=== PATIENT | male | born 1935 | race African-American/Black ===

== ENCOUNTER 2016-08-18 13:27 | Emergency (ER) | payer MEDICARE, MEDICAID ==
[~2016-08-18] VITALS: Ht 188 cm; Wt 90.0 kg
[~2016-08-18 13:27] MED LIST: AMIO100T4 PO; COR25 PO; DONE10TA43 PO; FURO80TA3 PO; LISI10TA5 PO; MEGE400O PO; OXYB5TAB11 PO; POTA20TA75 PO; TAMS-11 PO; WARF3TAB28 PO; eliquis PO
[2016-08-18] MEDS ORDERED: SODIUM CHLORIDE 0.9% 1,000 ML IV ONE (13:58)
[2016-08-18 14:25] LABS: CHLORIDE 107 mEq/L (98-107); INDEX HEMOLYSI 1 (1-3); INDEX ICTERIC 1 (1-4); INDEX LIPEMIC 1 (1-3); INR 1.2; PROTHROMBIN TIME 12.5 sec
[2016-08-18 14:28] LABS: BASOPHILS % 0.6 % (0.0-2.0); EOSINOPHILS % 0.4 % (0.0-5.0); HEMATOCRIT. 43.9 % (42.0-52.0); HEMOGLOBIN. 14.6 g/dL (14.0-18.0); LYMPHOCYTES % 20.4 % (20.0-50.0); MEAN CORPUSCULAR HEMOGLOBIN 31.7 pg (28.0-32.0); MEAN CORPUSCULAR HGB CONC 33.2 g/dL (31.0-37.0); MEAN CORPUSCULAR VOLUME 95.3 fL (80.0-94.0); MEAN PLATELET VOLUME 7.7 fl (7.4-10.4); MONOCYTES % 9.3 % (2.0-8.0); NEUTROPHILS % 69.3 % (40.0-76.0); PLATELET 237 x1000/uL (130-400); RED CELL DISTRIBUTION WIDTH 15.3 % (11.6-14.6); WHITE BLOOD COUNT 10.9 x1000/uL (4.5-11.0)
[2016-08-18 14:29] LABS: ALBUMIN 3.4 g/dL (3.4-5.0); ANION GAP 15; CALCIUM 9.4 mg/dL (8.5-10.1); CARBON DIOXIDE 26 mEq/L (21-32); LIPASE 466 IU/L (73-393); UREA NITROGEN BLOOD 47 mg/dL (7-21)
[2016-08-18 14:35] LABS: ALANINE AMINOTRANSFERASE 24 IU/L (13-61); NT PRO B-TYPE NATRIURETIC PEP 9796 pg/mL (5-125); eGFR 51 mL/min (>60)
[2016-08-18 16:18] LABS: CLARITY URINE CLEAR (CLEAR); COLOR URINE YELLOW (YELLOW); GLUCOSE URINE NEGATIVE (NEGATIVE); KETONES URINE NEGATIVE (NEGATIVE); LEUKOCYTE ESTERASE URINE NEGATIVE (NEGATIVE); NITRITE URINE NEGATIVE (NEGATIVE); OCCULT BLOOD URINE NEGATIVE (NEGATIVE); PH URINE 5.5 (4.5-8.0); PROTEIN URINE NEGATIVE (NEGATIVE); SPECIFIC GRAVITY URINE 1.021 (1.005-1.030)
[2016-08-18 16:31] VITALS: BP 113/57
== END 2016-08-18 17:04 | disposition home or self-care (01) ==
LOC: ER 13:49
DX: R53.1 Weakness (principal); F03.90 Unspecified dementia, unspecified severity, without behavioral disturbance, psychotic disturbance, mood disturbance, and anxiety; Z79.899 Other long term (current) drug therapy; Z79.01 Long term (current) use of anticoagulants; Z87.891 Personal history of nicotine dependence; I12.9 Hypertensive chronic kidney disease with stage 1 through stage 4 chronic kidney disease, or unspecified chronic kidney disease; N18.9 Chronic kidney disease, unspecified; R05 Cough; R51 Headache
CPT/HCPCS: 36415; 70450; 71010; 80053; 81003; 83605; 83690; 83880; 84484; 85025; 85610; 87040; 87086; 93005; 96360; 99285; J7030

== ENCOUNTER 2016-10-22 19:00 | Inpatient (IN) | payer MEDICARE, MEDICAID ==
[~2016-10-22] VITALS: Ht 180.3 cm; Wt 83.5 kg
[~2016-10-22 19:00] MED LIST changes: -DONE10TA43 PO; +IOHEXOL-350 100 ML BOTTLE ONE; -MEGE400O PO; -OXYB5TAB11 PO; -POTA20TA75 PO; +SODIUM CHLORIDE 0.9% 10ML VIAL ONE; -WARF3TAB28 PO
[2016-10-22] MEDS ORDERED: VANCOMYCIN 1 G PREMIX 200 ML IV SCH (19:45)
[2016-10-22 20:01] LABS: HEMATOCRIT. 29.6 % (42.0-52.0); MEAN CORPUSCULAR HEMOGLOBIN 31.5 pg (28.0-32.0); MEAN CORPUSCULAR VOLUME 93.2 fL (80.0-94.0); MEAN PLATELET VOLUME 8.3 fl (7.4-10.4); PLATELET 303 x1000/uL (130-400); RED BLOOD CELL COUNT 3.18 mill/uL (4.7-6.1); RED CELL DISTRIBUTION WIDTH 14.9 % (11.6-14.6)
[2016-10-22 20:07] LABS: CHLORIDE 99 mEq/L (98-107)
[2016-10-22 20:08] LABS: INR 1.2; PROTHROMBIN TIME 12.9 sec
[2016-10-22 20:15] LABS: CARBON DIOXIDE 33 mEq/L (21-32)
[2016-10-22 20:30] LABS: PLATELET ESTIMATE NORMAL
[2016-10-22] MEDS ORDERED: POTASSIUM CHLORIDE 20MEQ TABLET SR PO ONE (20:30)
[2016-10-22] MEDS ORDERED: ENOXAPARIN 80MG/0.8ML SYR SUBCUT ONE (21:30)
[2016-10-22] MEDS ORDERED: MORPHINE SULFATE 4 MG/ML CPJ (NOT FOR IM USE) IV ONE (22:30)
[2016-10-23 01:06] LABS: TROPONIN I 0.08 ng/mL (0.00-0.04)
[2016-10-23] MEDS ORDERED: HEPARIN 25,000 UNITS PREMIX 500 ML IV SCH (09:30)
[2016-10-23] MEDS ORDERED: CLONIDINE 0.1MG TABLET PO PRN ×2 (09:30→12:45)
[2016-10-23 10:25] LABS: HEMATOCRIT. 33.8 % (42.0-52.0); HEMOGLOBIN. 11.1 g/dL (14.0-18.0); MEAN CORPUSCULAR HEMOGLOBIN 30.8 pg (28.0-32.0); MEAN CORPUSCULAR VOLUME 93.9 fL (80.0-94.0); MEAN PLATELET VOLUME 8.4 fl (7.4-10.4); PLATELET 346 x1000/uL (130-400); RED CELL DISTRIBUTION WIDTH 15.2 % (11.6-14.6)
[2016-10-23 10:42] LABS: INR 1.2; PROTHROMBIN TIME 12.2 sec
[2016-10-23 10:44] LABS: CARBON DIOXIDE 36 mEq/L (21-32); CHLORIDE 98 mEq/L (98-107)
[2016-10-23 10:50] LABS: TROPONIN I 0.08 ng/mL (0.00-0.04)
[2016-10-23 10:51] LABS: PLATELET ESTIMATE NORMAL
[2016-10-23 10:54] LABS: CREATINE KINASE MB FRACTION 3.2 ng/mL (0.5-3.6)
[2016-10-23 11:50] VITALS: BP 129/81
[2016-10-23] MEDS ORDERED: HEPARIN BOLUS PRN aPTT <30 IV (12:00)
[2016-10-23] MEDS: LISINOPRIL 5MG TABLET PO SCH ×2 (12:15→20:52)
[2016-10-23 12:41] VITALS: BP 129/81
[2016-10-23] MEDS ORDERED: HYDROMORPHONE HCL/PF 2MG/ML CPJ IV PRN (12:45)
[2016-10-23] MEDS ORDERED: ONDANSETRON HCL 4MG/2ML VIAL IV PRN (12:45)
[2016-10-23] MEDS ORDERED: ENOXAPARIN 40MG/0.4ML SYR SUBCUT SCH (12:45)
[2016-10-23] MEDS ORDERED: ACETAMINOPHEN 325MG TABLET PO PRN (12:45)
[2016-10-23 12:46] VITALS: BP 129/81
[2016-10-23 12:50] LABS: CREATINE KINASE 140 IU/L (39-308)
[2016-10-23] MEDS: HEPARIN 25,000 UNITS PREMIX 500 ML IV SCH (15:02)
[2016-10-23 16:00] VITALS: BP 136/80
[2016-10-23] MEDS: DEXT 5%/0.45% NACL 1000ML 1,000 ML IV SCH (17:00)
[2016-10-23 20:00] VITALS: BP 107/59
[2016-10-23] MEDS: CARVEDILOL 12.5MG TABLET PO SCH (20:51)
[2016-10-23] MEDS ORDERED: POTASSIUM CHLORIDE 20MEQ TABLET SR PO NR (21:00)
[2016-10-23] MEDS: HEPARIN BOLUS PRN aPTT 30-44 IV (22:21)
[2016-10-24 02:00] VITALS: BP 112/55
[2016-10-24 04:00] VITALS: BP 117/70
[2016-10-24 06:22] LABS: CARBON DIOXIDE 36 mEq/L (21-32); CHLORIDE 98 mEq/L (98-107)
[2016-10-24 06:23] LABS: TROPONIN I 0.13 ng/mL (0.00-0.04)
[2016-10-24] MEDS: DEXT 5%/0.45% NACL 1000ML 1,000 ML IV SCH ×2 (06:39→16:24)
[2016-10-24] MEDS: HEPARIN BOLUS PRN aPTT 30-44 IV ×2 (06:56→21:05)
[2016-10-24 07:05] LABS: BASOPHILS % 0.2 % (0.0-2.0); EOSINOPHILS % 0.1 % (0.0-5.0); HEMATOCRIT. 32.1 % (42.0-52.0); HEMOGLOBIN. 10.4 g/dL (14.0-18.0); LYMPHOCYTES % 8.7 % (20.0-50.0); MEAN CORPUSCULAR HEMOGLOBIN 30.6 pg (28.0-32.0); MEAN CORPUSCULAR VOLUME 94.6 fL (80.0-94.0); MEAN PLATELET VOLUME 8.8 fl (7.4-10.4); MONOCYTES % 8.9 % (2.0-8.0); NEUTROPHILS % 82.1 % (40.0-76.0); PLATELET 349 x1000/uL (130-400); RED BLOOD CELL COUNT 3.39 mill/uL (4.7-6.1); RED CELL DISTRIBUTION WIDTH 15.2 % (11.6-14.6)
[2016-10-24 08:17] VITALS: BP 110/69
[2016-10-24] MEDS: LISINOPRIL 5MG TABLET PO SCH ×2 (08:53→21:00)
[2016-10-24] MEDS: POTASSIUM CHLORIDE 20MEQ TABLET SR PO SCH (09:02)
[2016-10-24] MEDS: CARVEDILOL 12.5MG TABLET PO SCH ×2 (09:02→21:00)
[2016-10-24 12:42] VITALS: BP 110/65
[2016-10-24] MEDS: HEPARIN 25,000 UNITS PREMIX 500 ML IV SCH (15:49)
[2016-10-24] MEDS ORDERED: POTASSIUM CHLORIDE 20MEQ TABLET SR PO ONE (16:00)
[2016-10-24 16:23] VITALS: BP 102/66
[2016-10-24 20:00] VITALS: BP 108/71
[2016-10-25] VITALS: BP 121/81
[2016-10-25 04:00] VITALS: BP 121/74
[2016-10-25] MEDS: DEXT 5%/0.45% NACL 1000ML 1,000 ML IV SCH (05:50)
[2016-10-25 07:58] VITALS: BP 115/80
[2016-10-25] MEDS: CARVEDILOL 12.5MG TABLET PO SCH ×2 (09:00→21:17)
[2016-10-25 09:59] LABS: HEMATOCRIT. 33.5 % (42.0-52.0); HEMOGLOBIN. 10.9 g/dL (14.0-18.0); MEAN CORPUSCULAR HEMOGLOBIN 30.7 pg (28.0-32.0); MEAN CORPUSCULAR VOLUME 94.4 fL (80.0-94.0); MEAN PLATELET VOLUME 8.6 fl (7.4-10.4); PLATELET 310 x1000/uL (130-400); RED BLOOD CELL COUNT 3.55 mill/uL (4.7-6.1); RED CELL DISTRIBUTION WIDTH 15.4 % (11.6-14.6)
[2016-10-25] MEDS: HEPARIN 25,000 UNITS PREMIX 500 ML IV SCH (10:10)
[2016-10-25 10:18] LABS: CARBON DIOXIDE 31 mEq/L (21-32); CHLORIDE 96 mEq/L (98-107)
[2016-10-25 12:07] VITALS: BP 110/66
[2016-10-25] MEDS: LISINOPRIL 5MG TABLET PO SCH ×2 (12:43→21:20)
[2016-10-25] MEDS: POTASSIUM CHLORIDE 20MEQ TABLET SR PO SCH (12:44)
[2016-10-25 16:12] VITALS: BP 125/76
[2016-10-25] MEDS ORDERED: MAGNESIUM 2 G PREMIX 50 ML IV NR (17:00)
[2016-10-25] MEDS: FUROSEMIDE 40MG/4ML VIAL IVP SCH (17:59)
[2016-10-25] MEDS ORDERED: FUROSEMIDE 40MG/4ML VIAL IVP NR (19:30)
[2016-10-25 19:56] LABS: BG CARBOXYHEMOGLOBIN 0.7 % (0.5-1.5); BG DEOXYHEMOGLOBIN 8.7 % (0.0-5.0); BG FRACTION INSPIRED OXYGEN 32; BG HCO3 ACT 29.7 mmol/L (22.0-26.0); BG METHEMOGLOBIN 0.3 % (0.0-1.5); BG OXYGEN SATURATION 91.2 % (92.0-98.5); BG OXYHEMOGLOBIN 90.3 % (94.0-97.0); BG PCO2 35.4 mmHg (35.0-45.0); BG PH 7.541 (7.350-7.450); BG PO2 58.5 mmHg (75.0-100.0); BG SAMPLE SITE RIGHT BRACHIAL; BG TOTAL HEMOGLOBIN 12.3 g/dL (12.0-18.0); BG VENT MODE NASAL CANNULA
[2016-10-25 20:00] VITALS: BP 156/85
[2016-10-25 20:34] LABS: PLATELET ESTIMATE NORMAL
[2016-10-25] MEDS ORDERED: CEFEPIME HCL 1000MG/VIAL INJ IM SCH (21:00)
[2016-10-25] MEDS: CEFEPIME 1,000 MG in DEXTROSE 5% WATER 50 ML IV SCH (21:17)
[2016-10-25] MEDS ORDERED: IPRATROPIUM/ALBUTEROL 0.5-3(2.5)MG/3ML NEB HHN NR (21:30)
[2016-10-25] MEDS: VANCOMYCIN 1500MG in DEXTROSE 5% WATER 250ML IV SCH (23:04)
[2016-10-26] VITALS: BP 118/65
[2016-10-26] MEDS: IPRATROPIUM/ALBUTEROL 0.5-3(2.5)MG/3ML NEB HHN SCH ×6 (00:12→21:00)
[2016-10-26] MEDS: HEPARIN 25,000 UNITS PREMIX 500 ML IV SCH ×2 (03:50→21:40)
[2016-10-26 04:00] VITALS: BP 118/48
[2016-10-26 07:12] LABS: HEMATOCRIT. 31.6 % (42.0-52.0); HEMOGLOBIN. 10.5 g/dL (14.0-18.0); MEAN CORPUSCULAR HEMOGLOBIN 30.9 pg (28.0-32.0); MEAN PLATELET VOLUME 8.9 fl (7.4-10.4); PLATELET 331 x1000/uL (130-400); RED CELL DISTRIBUTION WIDTH 15.2 % (11.6-14.6)
[2016-10-26 07:14] LABS: CARBON DIOXIDE 30 mEq/L (21-32); CHLORIDE 93 mEq/L (98-107)
[2016-10-26 08:00] VITALS: BP 93/61
[2016-10-26] MEDS: FUROSEMIDE 40MG/4ML VIAL IVP SCH (09:00)
[2016-10-26] MEDS: LISINOPRIL 5MG TABLET PO SCH ×2 (09:00→20:47)
[2016-10-26] MEDS: CARVEDILOL 12.5MG TABLET PO SCH ×2 (09:00→20:46)
[2016-10-26] MEDS: CEFEPIME 1,000 MG in DEXTROSE 5% WATER 50 ML IV SCH (10:03)
[2016-10-26] MEDS: POTASSIUM CHLORIDE 20MEQ TABLET SR PO SCH (10:03)
[2016-10-26 12:00] VITALS: BP 125/75
[2016-10-26] MEDS ORDERED: POTASSIUM CHLORIDE 20MEQ TABLET SR PO NR (15:30)
[2016-10-26 16:00] VITALS: BP 120/72
[2016-10-26 16:38] LABS: PLATELET ESTIMATE NORMAL
[2016-10-26] MEDS ORDERED: MAGNESIUM 2 G PREMIX 50 ML IV NR (17:00)
[2016-10-26] MEDS: VANCOMYCIN 1500MG in DEXTROSE 5% WATER 250ML IV SCH (17:29)
[2016-10-26 20:00] VITALS: BP 102/57
[2016-10-26] MEDS: CEFTRIAXONE 2 G in DEXTROSE 5% WATER 50 ML IV SCH (20:15)
[2016-10-26] MEDS: DEXT 5%/0.45% NACL 1000ML 1,000 ML IV SCH (21:06)
[2016-10-26] MEDS: METRONIDAZOLE 500MG TABLET PO SCH (21:41)
[2016-10-27] VITALS: BP 117/65
[2016-10-27] MEDS: IPRATROPIUM/ALBUTEROL 0.5-3(2.5)MG/3ML NEB HHN SCH ×4 (01:04→14:00)
[2016-10-27 04:00] VITALS: BP 131/78
[2016-10-27] MEDS: METRONIDAZOLE 500MG TABLET PO SCH ×3 (06:36→21:23)
[2016-10-27 06:40] LABS: HEMATOCRIT. 32.8 % (42.0-52.0); HEMOGLOBIN. 10.9 g/dL (14.0-18.0); MEAN CORPUSCULAR HEMOGLOBIN 31.1 pg (28.0-32.0); MEAN CORPUSCULAR VOLUME 93.9 fL (80.0-94.0); MEAN PLATELET VOLUME 9.4 fl (7.4-10.4); PLATELET 339 x1000/uL (130-400); RED CELL DISTRIBUTION WIDTH 15.4 % (11.6-14.6)
[2016-10-27 07:14] LABS: CARBON DIOXIDE 29 mEq/L (21-32); CHLORIDE 91 mEq/L (98-107)
[2016-10-27 08:00] VITALS: BP 113/86
[2016-10-27] MEDS: POTASSIUM CHLORIDE 20MEQ TABLET SR PO SCH (08:50)
[2016-10-27] MEDS: LISINOPRIL 5MG TABLET PO SCH ×2 (08:50→21:00)
[2016-10-27] MEDS: CARVEDILOL 12.5MG TABLET PO SCH ×2 (08:50→21:00)
[2016-10-27] MEDS: VANCOMYCIN 1500MG in DEXTROSE 5% WATER 250ML IV SCH (10:34)
[2016-10-27 12:00] VITALS: BP 117/66
[2016-10-27 14:04] LABS: PLATELET ESTIMATE NORMAL
[2016-10-27] MEDS: HEPARIN 25,000 UNITS PREMIX 500 ML IV SCH (15:10)
[2016-10-27 16:00] VITALS: BP 109/67
[2016-10-27] MEDS ORDERED: HEPARIN 25,000 UNITS PREMIX 500 ML IV SCH (16:15)
[2016-10-27] MEDS: CEFTRIAXONE 2 G in DEXTROSE 5% WATER 50 ML IV SCH (18:55)
[2016-10-27 20:00] VITALS: BP 108/66
[2016-10-28] VITALS: BP 115/66
[2016-10-28] MEDS: IPRATROPIUM/ALBUTEROL 0.5-3(2.5)MG/3ML NEB HHN SCH ×6 (00:20→20:48)
[2016-10-28 04:00] VITALS: BP 115/75
[2016-10-28 04:40] LABS: CARBON DIOXIDE 31 mEq/L (21-32); CHLORIDE 93 mEq/L (98-107); VANCOMYCIN TROUGH 22.4 ug/mL (5.0-10.0)
[2016-10-28 04:44] LABS: BASOPHILS % 0.4 % (0.0-2.0); EOSINOPHILS % 0.2 % (0.0-5.0); HEMATOCRIT. 31.4 % (42.0-52.0); HEMOGLOBIN. 10.5 g/dL (14.0-18.0); LYMPHOCYTES % 7.7 % (20.0-50.0); MEAN CORPUSCULAR VOLUME 92.9 fL (80.0-94.0); MONOCYTES % 8.3 % (2.0-8.0); NEUTROPHILS % 83.4 % (40.0-76.0); PLATELET 338 x1000/uL (130-400); RED BLOOD CELL COUNT 3.38 mill/uL (4.7-6.1); RED CELL DISTRIBUTION WIDTH 15.2 % (11.6-14.6)
[2016-10-28] MEDS: VANCOMYCIN 1500MG in DEXTROSE 5% WATER 250ML IV SCH (05:18)
[2016-10-28] MEDS: METRONIDAZOLE 500MG TABLET PO SCH ×2 (05:19→13:44)
[2016-10-28] MEDS ORDERED: VANCOMYCIN HCL 500 MG/VIAL ONE (07:10)
[2016-10-28] MEDS ORDERED: FENTANYL CITRATE/PF 50MCG/ML 2ML VIAL ONE (08:27)
[2016-10-28] MEDS: LISINOPRIL 5MG TABLET PO SCH ×2 (08:28→21:00)
[2016-10-28] MEDS: CARVEDILOL 12.5MG TABLET PO SCH ×2 (08:28→21:00)
[2016-10-28] MEDS: POTASSIUM CHLORIDE 20MEQ TABLET SR PO SCH (08:28)
[2016-10-28] MEDS ORDERED: LIDOCAINE HCL 1% 20ML VIAL (Pyxis) INJ ONE (08:49)
[2016-10-28] MEDS ORDERED: PROPOFOL 200MG/20ML VIAL IV ONE (08:49)
[2016-10-28] MEDS ORDERED: EPHEDRINE SULFATE 50MG/ML VIAL ONE ×2 (08:49→08:50)
[2016-10-28] MEDS ORDERED: ONDANSETRON HCL 4MG/2ML VIAL ONE (08:50)
[2016-10-28] MEDS ORDERED: MORPHINE SULFATE 2 MG/ML CPJ (NOT FOR IM USE) IV PRN (09:00)
[2016-10-28] MEDS ORDERED: ONDANSETRON HCL 4MG/2ML VIAL IV PRN (09:00)
[2016-10-28] MEDS ORDERED: BACITRACIN ZINC 15GM TUBE TOP ONE (09:15)
[2016-10-28 12:38] VITALS: BP 100/56
[2016-10-28] MEDS: CEFTRIAXONE 2 G in DEXTROSE 5% WATER 50 ML IV SCH (17:44)
[2016-10-28 20:09] VITALS: BP 108/63
[2016-10-29] VITALS: BP 118/66
[2016-10-29] MEDS: IPRATROPIUM/ALBUTEROL 0.5-3(2.5)MG/3ML NEB HHN SCH ×6 (00:44→19:33)
[2016-10-29] MEDS: DEXT 5%/0.45% NACL 1000ML 1,000 ML IV SCH (02:58)
[2016-10-29 04:00] VITALS: BP 110/63
[2016-10-29 07:40] VITALS: BP 113/63
[2016-10-29] MEDS: CARVEDILOL 12.5MG TABLET PO SCH ×2 (08:34→21:15)
[2016-10-29] MEDS: LISINOPRIL 5MG TABLET PO SCH ×2 (08:35→21:15)
[2016-10-29] MEDS: POTASSIUM CHLORIDE 20MEQ TABLET SR PO SCH (08:36)
[2016-10-29] MEDS ORDERED: VANCOMYCIN 1500MG in DEXTROSE 5% WATER 250ML IV SCH (09:00)
[2016-10-29 10:29] LABS: HEMATOCRIT. 30.6 % (42.0-52.0); HEMOGLOBIN. 10.2 g/dL (14.0-18.0); MEAN CORPUSCULAR VOLUME 93.3 fL (80.0-94.0); MEAN PLATELET VOLUME 8.4 fl (7.4-10.4); PLATELET 335 x1000/uL (130-400); RED BLOOD CELL COUNT 3.28 mill/uL (4.7-6.1); RED CELL DISTRIBUTION WIDTH 15.4 % (11.6-14.6)
[2016-10-29 10:48] LABS: CARBON DIOXIDE 31 mEq/L (21-32); CHLORIDE 93 mEq/L (98-107)
[2016-10-29 11:43] VITALS: BP 106/68
[2016-10-29 13:22] LABS: PLATELET ESTIMATE NORMAL
[2016-10-29 16:02] VITALS: BP 108/61
[2016-10-29] MEDS: CEFTRIAXONE 2 G in DEXTROSE 5% WATER 50 ML IV SCH (17:06)
[2016-10-29 20:00] VITALS: BP 132/65
[2016-10-29] MEDS ORDERED: MORPHINE SULFATE 2 MG/ML CPJ (NOT FOR IM USE) IV PRN (20:00)
[2016-10-29] MEDS ORDERED: BISACODYL 5MG TABLET PO PRN (20:00)
[2016-10-30] VITALS: BP 125/70
[2016-10-30] MEDS: IPRATROPIUM/ALBUTEROL 0.5-3(2.5)MG/3ML NEB HHN SCH ×6 (00:08→20:49)
[2016-10-30 04:00] VITALS: BP 130/83
[2016-10-30] MEDS: VANCOMYCIN 1 G PREMIX 200 ML IV SCH ×2 (05:25→23:08)
[2016-10-30 06:32] LABS: CARBON DIOXIDE 32 mEq/L (21-32); CHLORIDE 96 mEq/L (98-107)
[2016-10-30 07:26] LABS: BASOPHILS % 0.5 % (0.0-2.0); EOSINOPHILS % 0.5 % (0.0-5.0); HEMATOCRIT. 30.6 % (42.0-52.0); LYMPHOCYTES % 7.1 % (20.0-50.0); MEAN CORPUSCULAR HEMOGLOBIN 30.8 pg (28.0-32.0); MEAN CORPUSCULAR VOLUME 94.2 fL (80.0-94.0); MEAN PLATELET VOLUME 8.9 fl (7.4-10.4); MONOCYTES % 13.9 % (2.0-8.0); PLATELET 330 x1000/uL (130-400); RED BLOOD CELL COUNT 3.25 mill/uL (4.7-6.1); RED CELL DISTRIBUTION WIDTH 15.6 % (11.6-14.6)
[2016-10-30 08:00] VITALS: BP 115/65
[2016-10-30] MEDS: POTASSIUM CHLORIDE 20MEQ TABLET SR PO SCH ×2 (08:49→08:58)
[2016-10-30] MEDS: CARVEDILOL 12.5MG TABLET PO SCH ×3 (08:50→21:48)
[2016-10-30] MEDS: LISINOPRIL 5MG TABLET PO SCH ×2 (08:51→21:48)
[2016-10-30 12:00] VITALS: BP 114/66
[2016-10-30 16:00] VITALS: BP 118/68
[2016-10-30] MEDS: CEFTRIAXONE 2 G in DEXTROSE 5% WATER 50 ML IV SCH (18:08)
[2016-10-30] MEDS ORDERED: POTASSIUM CHLORIDE 20MEQ/PACKET PO NR (19:45)
[2016-10-30 20:00] VITALS: BP 118/67
[2016-10-30] MEDS ORDERED: LACTULOSE 20G/30ML UDC PO NR (21:00)
[2016-10-31] VITALS: BP 108/66
[2016-10-31] MEDS: IPRATROPIUM/ALBUTEROL 0.5-3(2.5)MG/3ML NEB HHN SCH ×6 (00:19→20:51)
[2016-10-31 04:00] VITALS: BP 118/78
[2016-10-31 05:57] LABS: BASOPHILS % 0.4 % (0.0-2.0); EOSINOPHILS % 0.4 % (0.0-5.0); HEMATOCRIT. 29.9 % (42.0-52.0); HEMOGLOBIN. 9.9 g/dL (14.0-18.0); LYMPHOCYTES % 8.1 % (20.0-50.0); MEAN CORPUSCULAR VOLUME 93.1 fL (80.0-94.0); MEAN PLATELET VOLUME 8.4 fl (7.4-10.4); MONOCYTES % 13.4 % (2.0-8.0); NEUTROPHILS % 77.7 % (40.0-76.0); PLATELET 351 x1000/uL (130-400); RED BLOOD CELL COUNT 3.21 mill/uL (4.7-6.1); RED CELL DISTRIBUTION WIDTH 15.3 % (11.6-14.6)
[2016-10-31 06:37] LABS: CARBON DIOXIDE 33 mEq/L (21-32); CHLORIDE 98 mEq/L (98-107)
[2016-10-31 08:03] VITALS: BP 111/67
[2016-10-31] MEDS: POTASSIUM CHLORIDE 20MEQ TABLET SR PO SCH (08:43)
[2016-10-31] MEDS: LISINOPRIL 5MG TABLET PO SCH ×2 (08:43→20:23)
[2016-10-31] MEDS: CARVEDILOL 12.5MG TABLET PO SCH ×2 (08:43→20:23)
[2016-10-31 12:00] VITALS: BP 93/51
[2016-10-31] MEDS: CEFTRIAXONE 2 G in DEXTROSE 5% WATER 50 ML IV SCH (14:45)
[2016-10-31 16:11] VITALS: BP 98/66
[2016-10-31] MEDS: VANCOMYCIN 1 G PREMIX 200 ML IV SCH (16:43)
[2016-10-31 20:00] VITALS: BP 108/65
[2016-10-31] MEDS ORDERED: CEFTRIAXONE 2 G in DEXTROSE 5% WATER 50 ML IV SCH (20:00)
[2016-11-01] VITALS: BP 120/68
[2016-11-01] MEDS: IPRATROPIUM/ALBUTEROL 0.5-3(2.5)MG/3ML NEB HHN SCH ×7 (00:13→23:35)
[2016-11-01] MEDS ORDERED: LACTULOSE 20G/30ML UDC PO NR (02:00)
[2016-11-01 06:00] VITALS: BP 112/62
[2016-11-01 06:36] LABS: BASOPHILS % 0.8 % (0.0-2.0); EOSINOPHILS % 0.6 % (0.0-5.0); HEMATOCRIT. 31.2 % (42.0-52.0); HEMOGLOBIN. 10.4 g/dL (14.0-18.0); LYMPHOCYTES % 10.2 % (20.0-50.0); MEAN CORPUSCULAR HEMOGLOBIN 31.4 pg (28.0-32.0); MEAN CORPUSCULAR VOLUME 94.3 fL (80.0-94.0); MEAN PLATELET VOLUME 8.5 fl (7.4-10.4); MONOCYTES % 11.5 % (2.0-8.0); NEUTROPHILS % 76.9 % (40.0-76.0); PLATELET 374 x1000/uL (130-400); RED BLOOD CELL COUNT 3.31 mill/uL (4.7-6.1); RED CELL DISTRIBUTION WIDTH 15.1 % (11.6-14.6)
[2016-11-01 08:00] VITALS: BP 118/67
[2016-11-01] MEDS: POTASSIUM CHLORIDE 20MEQ TABLET SR PO SCH (08:59)
[2016-11-01] MEDS: CARVEDILOL 12.5MG TABLET PO SCH ×2 (08:59→20:18)
[2016-11-01] MEDS: LISINOPRIL 5MG TABLET PO SCH ×2 (08:59→20:18)
[2016-11-01 09:45] LABS: CARBON DIOXIDE 33 mEq/L (21-32); CHLORIDE 97 mEq/L (98-107)
[2016-11-01 12:00] VITALS: BP 113/70
[2016-11-01] MEDS: VANCOMYCIN 1 G PREMIX 200 ML IV SCH (13:10)
[2016-11-01] MEDS ORDERED: LIDOCAINE HCL 1% 20ML VIAL (Pyxis) INJ ONE (14:13)
[2016-11-01] MEDS ORDERED: SODIUM BICARBONATE 4% (2.4MEQ) 5ML VIAL IV ONE (14:13)
[2016-11-01] MEDS: CEFTRIAXONE 2 G in DEXTROSE 5% WATER 50 ML IV SCH (15:37)
[2016-11-01 16:00] VITALS: BP 110/57
[2016-11-01 20:00] VITALS: BP 123/71
[2016-11-02] VITALS: BP 112/63
[2016-11-02 04:00] VITALS: BP 115/66
[2016-11-02] MEDS: IPRATROPIUM/ALBUTEROL 0.5-3(2.5)MG/3ML NEB HHN SCH ×5 (04:26→21:39)
[2016-11-02 04:42] LABS: CARBON DIOXIDE 34 mEq/L (21-32); CHLORIDE 98 mEq/L (98-107); VANCOMYCIN TROUGH 21.4 ug/mL (5.0-10.0)
[2016-11-02] MEDS: VANCOMYCIN 1 G PREMIX 200 ML IV SCH ×2 (05:02→23:59)
[2016-11-02 06:25] LABS: BASOPHILS % 0.8 % (0.0-2.0); EOSINOPHILS % 0.7 % (0.0-5.0); HEMATOCRIT. 30.2 % (42.0-52.0); HEMOGLOBIN. 10.2 g/dL (14.0-18.0); MEAN CORPUSCULAR HEMOGLOBIN 31.4 pg (28.0-32.0); MEAN CORPUSCULAR VOLUME 92.9 fL (80.0-94.0); MEAN PLATELET VOLUME 8.5 fl (7.4-10.4); MONOCYTES % 11.9 % (2.0-8.0); NEUTROPHILS % 75.6 % (40.0-76.0); PLATELET 359 x1000/uL (130-400); RED BLOOD CELL COUNT 3.25 mill/uL (4.7-6.1); RED CELL DISTRIBUTION WIDTH 15.7 % (11.6-14.6)
[2016-11-02 08:00] VITALS: BP 120/69
[2016-11-02] MEDS: LISINOPRIL 5MG TABLET PO SCH ×2 (09:17→21:19)
[2016-11-02] MEDS: POTASSIUM CHLORIDE 20MEQ TABLET SR PO SCH (09:17)
[2016-11-02] MEDS: CARVEDILOL 12.5MG TABLET PO SCH ×2 (09:17→21:19)
[2016-11-02 12:00] VITALS: BP 107/61
[2016-11-02] MEDS: CEFTRIAXONE 2 G in DEXTROSE 5% WATER 50 ML IV SCH (13:38)
[2016-11-02 15:28] VITALS: BP 105/60
[2016-11-02 20:00] VITALS: BP 121/72
[2016-11-03] VITALS (7 sets, daily range): BP systolic 104–128; BP diastolic 58–73
[2016-11-03] MEDS: IPRATROPIUM/ALBUTEROL 0.5-3(2.5)MG/3ML NEB HHN SCH ×6 (01:20→21:12)
[2016-11-03] MEDS: POTASSIUM CHLORIDE 20MEQ TABLET SR PO SCH (09:24)
[2016-11-03] MEDS: CARVEDILOL 12.5MG TABLET PO SCH ×2 (09:25→20:56)
[2016-11-03] MEDS: LISINOPRIL 5MG TABLET PO SCH ×2 (09:25→20:57)
[2016-11-03] MEDS: CEFTRIAXONE 2 G in DEXTROSE 5% WATER 50 ML IV SCH (13:59)
[2016-11-03] MEDS: QUETIAPINE FUMARATE 25MG TABLET PO SCH (15:44)
[2016-11-03] MEDS: VANCOMYCIN 1 G PREMIX 200 ML IV SCH (17:21)
[2016-11-04] MEDS: IPRATROPIUM/ALBUTEROL 0.5-3(2.5)MG/3ML NEB HHN SCH ×6 (00:41→20:47)
[2016-11-04 00:56] VITALS: BP 131/76
[2016-11-04 04:38] VITALS: BP 140/77
[2016-11-04 07:57] VITALS: BP 129/80
[2016-11-04] MEDS: POTASSIUM CHLORIDE 20MEQ TABLET SR PO SCH (08:52)
[2016-11-04] MEDS: LISINOPRIL 5MG TABLET PO SCH ×2 (08:53→21:28)
[2016-11-04] MEDS: CARVEDILOL 12.5MG TABLET PO SCH ×2 (08:53→21:28)
[2016-11-04] MEDS: QUETIAPINE FUMARATE 25MG TABLET PO SCH ×2 (08:53→17:26)
[2016-11-04] MEDS: VANCOMYCIN 1 G PREMIX 200 ML IV SCH (11:33)
[2016-11-04 12:01] VITALS: BP 113/71
[2016-11-04] MEDS: CEFTRIAXONE 2 G in DEXTROSE 5% WATER 50 ML IV SCH (14:16)
[2016-11-04 16:00] VITALS: BP 127/82
[2016-11-04 20:00] VITALS: BP 115/50
[2016-11-05] VITALS: BP 120/60
[2016-11-05] MEDS: IPRATROPIUM/ALBUTEROL 0.5-3(2.5)MG/3ML NEB HHN SCH ×7 (00:34→23:40)
[2016-11-05 04:00] VITALS: BP 126/89
[2016-11-05] MEDS: VANCOMYCIN 1 G PREMIX 200 ML IV SCH (05:05)
[2016-11-05 08:00] VITALS: BP 128/68
[2016-11-05] MEDS: POTASSIUM CHLORIDE 20MEQ TABLET SR PO SCH (08:24)
[2016-11-05] MEDS: CARVEDILOL 12.5MG TABLET PO SCH ×2 (08:24→20:57)
[2016-11-05] MEDS: LISINOPRIL 5MG TABLET PO SCH ×2 (08:24→20:57)
[2016-11-05] MEDS: QUETIAPINE FUMARATE 25MG TABLET PO SCH ×2 (08:24→17:47)
[2016-11-05 12:00] VITALS: BP 112/70
[2016-11-05] MEDS: CEFTRIAXONE 2 G in DEXTROSE 5% WATER 50 ML IV SCH (13:25)
[2016-11-05 16:00] VITALS: BP 103/57
[2016-11-05 20:00] VITALS: BP 120/71
[2016-11-06] VITALS: BP 125/73
[2016-11-06] MEDS: VANCOMYCIN 1 G PREMIX 200 ML IV SCH (00:21)
[2016-11-06] MEDS: IPRATROPIUM/ALBUTEROL 0.5-3(2.5)MG/3ML NEB HHN SCH ×5 (03:55→22:43)
[2016-11-06 04:00] VITALS: BP 120/80
[2016-11-06 08:00] VITALS: BP 128/70
[2016-11-06] MEDS: QUETIAPINE FUMARATE 25MG TABLET PO SCH ×2 (08:19→17:25)
[2016-11-06] MEDS: POTASSIUM CHLORIDE 20MEQ TABLET SR PO SCH (08:20)
[2016-11-06] MEDS: LISINOPRIL 5MG TABLET PO SCH ×2 (08:20→20:46)
[2016-11-06] MEDS: CARVEDILOL 12.5MG TABLET PO SCH ×2 (08:20→20:47)
[2016-11-06 12:00] VITALS: BP 132/63
[2016-11-06] MEDS: CEFTRIAXONE 2 G in DEXTROSE 5% WATER 50 ML IV SCH (13:44)
[2016-11-06 20:00] VITALS: BP 133/80
[2016-11-06] MEDS: LORAZEPAM 2MG/ML CPJ IV PRN (23:13)
[2016-11-07] VITALS: BP 125/69
[2016-11-07] MEDS ORDERED: VANCOMYCIN 1 G PREMIX 200 ML IV SCH (01:00)
[2016-11-07] MEDS: IPRATROPIUM/ALBUTEROL 0.5-3(2.5)MG/3ML NEB HHN SCH ×6 (02:14→21:01)
[2016-11-07 04:00] VITALS: BP 134/89
[2016-11-07 06:58] LABS: BASOPHILS % 0.5 % (0.0-2.0); EOSINOPHILS % 0.1 % (0.0-5.0); HEMATOCRIT. 35.6 % (42.0-52.0); HEMOGLOBIN. 11.6 g/dL (14.0-18.0); LYMPHOCYTES % 10.1 % (20.0-50.0); MEAN CORPUSCULAR HEMOGLOBIN 30.6 pg (28.0-32.0); MEAN CORPUSCULAR VOLUME 93.6 fL (80.0-94.0); MEAN PLATELET VOLUME 8.5 fl (7.4-10.4); MONOCYTES % 7.2 % (2.0-8.0); NEUTROPHILS % 82.1 % (40.0-76.0); PLATELET 367 x1000/uL (130-400); RED CELL DISTRIBUTION WIDTH 16.1 % (11.6-14.6)
[2016-11-07 07:20] LABS: CARBON DIOXIDE 26 mEq/L (21-32); CHLORIDE 103 mEq/L (98-107)
[2016-11-07 08:00] VITALS: BP 158/90
[2016-11-07] MEDS: CARVEDILOL 12.5MG TABLET PO SCH ×2 (09:00→21:36)
[2016-11-07] MEDS: LISINOPRIL 5MG TABLET PO SCH ×2 (09:30→21:35)
[2016-11-07] MEDS: QUETIAPINE FUMARATE 25MG TABLET PO SCH ×2 (09:31→17:14)
[2016-11-07] MEDS: POTASSIUM CHLORIDE 20MEQ TABLET SR PO SCH (09:31)
[2016-11-07 12:00] VITALS: BP 115/65
[2016-11-07 15:06] LABS: BG BASE EXCESS 3.3 mmol/L (-2.0-2.0); BG CARBOXYHEMOGLOBIN 0.7 % (0.5-1.5); BG DEOXYHEMOGLOBIN 8.6 % (0.0-5.0); BG FRACTION INSPIRED OXYGEN 28; BG HCO3 ACT 26.9 mmol/L (22.0-26.0); BG METHEMOGLOBIN 0.4 % (0.0-1.5); BG OXYGEN SATURATION 91.3 % (92.0-98.5); BG OXYHEMOGLOBIN 90.3 % (94.0-97.0); BG PCO2 37.5 mmHg (35.0-45.0); BG PH 7.473 (7.350-7.450); BG PO2 64.9 mmHg (75.0-100.0); BG SAMPLE SITE RIGHT RADIAL; BG TOTAL HEMOGLOBIN 12.8 g/dL (12.0-18.0); BG VENT MODE NASAL CANNULA
[2016-11-07 16:00] VITALS: BP 131/65
[2016-11-07] MEDS: CEFTRIAXONE 2 G in DEXTROSE 5% WATER 50 ML IV SCH (17:12)
[2016-11-07 20:00] VITALS: BP 132/73
[2016-11-07] MEDS: ENOXAPARIN 40MG/0.4ML SYR SUBCUT SCH (21:36)
[2016-11-08] VITALS: BP 125/76
[2016-11-08] MEDS: VANCOMYCIN 750 MG PREMIX 150 ML IV SCH (00:35)
[2016-11-08] MEDS: IPRATROPIUM/ALBUTEROL 0.5-3(2.5)MG/3ML NEB HHN SCH ×6 (00:46→20:23)
[2016-11-08 04:00] VITALS: BP 132/76
[2016-11-08 08:12] VITALS: BP 130/67
[2016-11-08] MEDS: QUETIAPINE FUMARATE 25MG TABLET PO SCH ×2 (10:01→18:13)
[2016-11-08] MEDS: POTASSIUM CHLORIDE 20MEQ TABLET SR PO SCH (10:01)
[2016-11-08] MEDS: CARVEDILOL 12.5MG TABLET PO SCH ×2 (10:01→20:52)
[2016-11-08] MEDS: LISINOPRIL 5MG TABLET PO SCH ×2 (10:01→20:52)
[2016-11-08 11:47] VITALS: BP 91/61
[2016-11-08 16:18] VITALS: BP 111/54
[2016-11-08] MEDS: CEFTRIAXONE 2 G in DEXTROSE 5% WATER 50 ML IV SCH (18:13)
[2016-11-08 20:00] VITALS: BP 124/88
[2016-11-08] MEDS: ENOXAPARIN 40MG/0.4ML SYR SUBCUT SCH (20:51)
[2016-11-08] MEDS: ASCORBIC ACID 250 MG TABLET PO SCH (20:52)
[2016-11-09] VITALS: BP 133/70
[2016-11-09] MEDS: LORAZEPAM 2MG/ML CPJ IV PRN ×2 (00:06→10:37)
[2016-11-09] MEDS: VANCOMYCIN 750 MG PREMIX 150 ML IV SCH (00:08)
[2016-11-09] MEDS: IPRATROPIUM/ALBUTEROL 0.5-3(2.5)MG/3ML NEB HHN SCH ×6 (00:44→22:10)
[2016-11-09 04:00] VITALS: BP 135/81
[2016-11-09 06:08] LABS: BASOPHILS % 0.8 % (0.0-2.0); EOSINOPHILS % 0.5 % (0.0-5.0); HEMATOCRIT. 35.5 % (42.0-52.0); HEMOGLOBIN. 11.8 g/dL (14.0-18.0); LYMPHOCYTES % 11.8 % (20.0-50.0); MEAN CORPUSCULAR HEMOGLOBIN 31.2 pg (28.0-32.0); MEAN CORPUSCULAR VOLUME 93.5 fL (80.0-94.0); MEAN PLATELET VOLUME 8.2 fl (7.4-10.4); MONOCYTES % 10.2 % (2.0-8.0); NEUTROPHILS % 76.7 % (40.0-76.0); PLATELET 310 x1000/uL (130-400); RED CELL DISTRIBUTION WIDTH 16.2 % (11.6-14.6)
[2016-11-09 08:00] VITALS: BP 137/91
[2016-11-09] MEDS: POTASSIUM CHLORIDE 20MEQ TABLET SR PO SCH ×2 (09:00→09:41)
[2016-11-09] MEDS: LISINOPRIL 5MG TABLET PO SCH ×2 (09:42→21:28)
[2016-11-09] MEDS: CARVEDILOL 12.5MG TABLET PO SCH ×2 (09:43→21:28)
[2016-11-09] MEDS: QUETIAPINE FUMARATE 25MG TABLET PO SCH ×2 (09:43→18:18)
[2016-11-09] MEDS: MULTIVITAMINS,THER W-MINERALS TABLET PO SCH (09:43)
[2016-11-09] MEDS: ZINC SULFATE 220 MG ( 50 ) CAPSULE PO SCH (09:43)
[2016-11-09] MEDS: ASCORBIC ACID 250 MG TABLET PO SCH ×2 (09:43→21:28)
[2016-11-09 12:00] VITALS: BP 141/71
[2016-11-09] MEDS: CEFTRIAXONE 2 G in DEXTROSE 5% WATER 50 ML IV SCH (13:59)
[2016-11-09 16:00] VITALS: BP 145/85
[2016-11-09 20:00] VITALS: BP 128/81
[2016-11-09] MEDS: ENOXAPARIN 40MG/0.4ML SYR SUBCUT SCH (21:28)
[2016-11-10] VITALS: BP 127/75
[2016-11-10] MEDS: IPRATROPIUM/ALBUTEROL 0.5-3(2.5)MG/3ML NEB HHN SCH ×4 (00:53→11:53)
[2016-11-10] MEDS: VANCOMYCIN 750 MG PREMIX 150 ML IV SCH (01:05)
[2016-11-10 04:00] VITALS: BP 118/83
[2016-11-10 08:00] VITALS: BP 131/77
[2016-11-10] MEDS: POTASSIUM CHLORIDE 20MEQ TABLET SR PO SCH (09:46)
[2016-11-10] MEDS: MULTIVITAMINS,THER W-MINERALS TABLET PO SCH (09:46)
[2016-11-10] MEDS: ZINC SULFATE 220 MG ( 50 ) CAPSULE PO SCH (09:46)
[2016-11-10] MEDS: QUETIAPINE FUMARATE 25MG TABLET PO SCH (09:47)
[2016-11-10] MEDS: ASCORBIC ACID 250 MG TABLET PO SCH (09:47)
[2016-11-10] MEDS: LISINOPRIL 5MG TABLET PO SCH (09:47)
[2016-11-10] MEDS: CARVEDILOL 12.5MG TABLET PO SCH (09:47)
[2016-11-10 14:19] VITALS: BP 120/76
== END 2016-11-10 15:25 | DRG 853 ==
LOC: ER 19:14 → 6WST 23:35 → EDBEDREQTM 10-23 00:01 → EDBEDREQ 10-23 00:01 → ENRESERV 10-23 10:19 → 6WST 10-23 22:12
PROVIDERS: ADMIT Internal Medicine; ATTEND Internal Medicine
PROC: 02HV33Z Insertion of Infusion Device into Superior Vena Cava, Percutaneous Approach (ICD-10-PCS; 2016-10-22)
PROC: B5181ZA Fluoroscopy of Superior Vena Cava using Low Osmolar Contrast, Guidance (ICD-10-PCS; 2016-10-22)
PROC: B548ZZA Ultrasonography of Superior Vena Cava, Guidance (ICD-10-PCS; 2016-10-22)
PROC: 0Y6J0Z2 Detachment at Left Lower Leg, Mid, Open Approach (ICD-10-PCS; principal; 2016-10-28 08:00)
DX: A41.9 Sepsis, unspecified organism (principal); I33.9 Acute and subacute endocarditis, unspecified; E43 Unspecified severe protein-calorie malnutrition; E11.52 Type 2 diabetes mellitus with diabetic peripheral angiopathy with gangrene; I70.262 Atherosclerosis of native arteries of extremities with gangrene, left leg; I42.9 Cardiomyopathy, unspecified; L03.90 Cellulitis, unspecified; I50.9 Heart failure, unspecified; E87.6 Hypokalemia; R45.1 Restlessness and agitation; E11.51 Type 2 diabetes mellitus with diabetic peripheral angiopathy without gangrene; K59.00 Constipation, unspecified; N28.9 Disorder of kidney and ureter, unspecified; E83.42 Hypomagnesemia; D64.9 Anemia, unspecified; F01.50 Vascular dementia, unspecified severity, without behavioral disturbance, psychotic disturbance, mood disturbance, and anxiety; E78.5 Hyperlipidemia, unspecified; I05.9 Rheumatic mitral valve disease, unspecified; I11.0 Hypertensive heart disease with heart failure; I25.10 Atherosclerotic heart disease of native coronary artery without angina pectoris; I69.311 Memory deficit following cerebral infarction; Z89.612 Acquired absence of left leg above knee; Z95.810 Presence of automatic (implantable) cardiac defibrillator; Z95.1 Presence of aortocoronary bypass graft
CPT/HCPCS: 36415; 36569; 36600; 70450; 71010; 72191; 73706; 76937; 77001; 80048; 80053; 80202; 82375; 82550; 82553; 82805; 82962; 83735; 83880; 84443; 84484; 85025; 85610; 85651; 85730; 86140; 86850; 86900; 87040; 87070; 87205; 88307; 88311; 93005; 93306; 94640; 96365; 96366; 96372; 97163; 97530; 99285; A4216; C1725; C1893; J0171; J0692; J0696; J1170; J1644; J1650; J1940; J2060; J2270; J2405; J2704; J3010; J3370; J3475; J3490; J7030; J7040; J7050; J7060; J7620; Q9967